=== PATIENT | female | born 1965 | race Caucasian/White ===

== ENCOUNTER 2017-08-01 06:10 | Emergency (ER) | payer OTHER ==
[2017-08-01 06:25] VITALS: BP 153/89; PULSE 76; TEMP 98.9; BMI 32.0
--- NOTE | 2017-08-01 06:30 | PDOC ---
History of Present Illness - General Chief Complaint: Psychiatric Stated Complaint: NUMBNESS LT ARM LAST NIGHT - History of Present Illness Initial Comments: 52y female, htn no meds, presents with areas of patchy numbness x 12 hours, first l wrist, then l elbow, then l shoulder. Followed by run of fast, regular palpitations. No rash. No motor disturbance. No fever, chills pmh: htn fhx: non-contrib ros: reviewed and otherwise negative Physical exam: GENERAL: [The patient is awake, alert, and fully oriented, and in no apparent distress.] HEAD: [Normal with no signs of trauma.] EYES: [Pupils equal, round and reactive to light, extraocular movements intact, sclera anicteric, conjunctiva are normal.] ENT: [TMs normal, nares patent, oropharynx clear without exudates. Moist mucous membranes.] NECK: [Normal range of motion, supple without lymphadenopathy, JVD, or masses.] LUNGS: [Breath sounds equal, clear to auscultation bilaterally. No wheezes, and no crackles.] HEART: [Regular rate and rhythm, normal S1 and S2 without murmur, rub or gallop.] ABDOMEN: [Soft, nontender, normoactive bowel sounds. No guarding, no rebound. No masses appreciated.] EXTREMITIES: [Normal range of motion, no edema. No clubbing or cyanosis. No cords, erythema, or tenderness.] NEUROLOGICAL: [Cranial nerves II through XII grossly intact. Normal speech, normal gait. Nl sensory exam] PSYCH: [Normal mood, normal affect.] SKIN: [Warm, Dry, normal turgor, no rashes or lesions noted.] EKG: sinus at 66, nl axis, nl intervals no ischemic findings a/p non-specific sympotms with nl pe and nl ekg ok to fu outpt if symptoms recur Past History - Past Medical History Allergies/Adverse Reactions: Allergies Allergy/AdvReac Type Severity Reaction Status Date / Time iodine Allergy Severe Finger Unverified 04/14/13 10:01 swelling and throat tightening phenytoin sodium Allergy Intermediate Rash Unverified 01/17/16 14:14 [From Dilantin] phenytoin sodium extended Allergy Intermediate Rash Unverified 01/17/16 14:14 [From Dilantin] Sulfa (Sulfonamide Allergy Mild Rash Unverified 01/17/16 14:14 Antibiotics) ethinyl estradiol Allergy Blind spots Unverified 04/16/16 09:29 [From Ortho-Novum (21)] norethindrone Allergy Blind spots Unverified 04/16/16 09:29 [From [facility]o-[facility] (21)] Shrimp, shellfish Allergy Swelling, Uncoded 04/14/13 10:01 throat tightening triamterene/hctz Allergy Itch Uncoded 04/16/16 09:28 control AdvReac Intermediate Blind Spots Uncoded 01/17/16 14:14 Home Medications: Ambulatory Orders NK [No Known Home Medication] 08/01/17 COPD: No HTN: Yes - Suicide/Smoking/Psychosocial Hx Smoking History: Never smoked *Physical Exam - Vital Signs Last Vital Signs Temp Pulse Resp BP Pulse Ox 98.9 F 76 16 153/89 98 08/01/17 06:23 08/01/17 06:23 08/01/17 06:23 08/01/17 06:23 08/01/17 06:23 *DC/Admit/Observation/Transfer Diagnosis at time of Disposition: Palpitations - Discharge Dispostion Disposition: HOME Condition at time of disposition: Stable - Referrals Referrals: Carlitos Hemphill MD [Primary Care Provider] - Call tomorrow - Patient Instructions - Post Discharge Activity
--- NOTE | 2017-08-03 18:58 | EKG ---
Test Reason : Blood Pressure : / mmHG Vent. Rate : 066 BPM Atrial Rate : 066 BPM P-R Int : 122 ms QRS Dur : 096 ms QT Int : 382 ms P-R-T Axes : 028 -36 026 degrees QTc Int : 400 ms NORMAL SINUS RHYTHM LEFT AXIS DEVIATION ABNORMAL ECG NO PREVIOUS ECGS AVAILABLE Confirmed by GIOVANA CHAVES MD ([id number]) on 08/03/2017 6:58:12 PM Referred By: MD VARGAS Confirmed By:GIOVANA CHAVES MD
== END 2017-08-01 06:46 | disposition home or self-care (01) ==
LOC: FER 06:10
DX: R00.2 Palpitations (principal); I10 Essential (primary) hypertension
CPT/HCPCS: 93005; 93010; 99281-25

== ENCOUNTER 2020-08-07 11:16 | Emergency (ER) | payer OTHER | END 2020-08-07 11:59 | disposition home or self-care (01) | LOC: JVIRT 11:16 | DX: Z03.818 Encounter for observation for suspected exposure to other biological agents ruled out (principal) | CPT/HCPCS: C9803; G2012-GT; Q3014-GT; U0003 ==